=== PATIENT | female | born 1945 | race Caucasian/White ===

== ENCOUNTER → 2016-06-03 | Day surgery (SDC) | payer MEDICARE ==
[~2016-06-03] VITALS: Ht 174.6 cm; Wt 75.5 kg
[~2016-06-03] MED LIST: ACET-703 PO; APRE1TAB3 PO; ASPI1TAB69 PO; BIOT1000 PO; CHOL5000 PO; CHRO200C PO; COQ1100C PO; GABA300C5 PO; HYALURONIDASE/LIDOCAINE/EPINEPHRINE/BUPIVACAINE 4.5 ML SYR LEFT EYE ONE; HYALURONIDASE/LIDOCAINE/EPINEPHRINE/BUPIVACAINE 6 ML SYR LEFT EYE ONE; LIDOCAINE HCL 1% 30 ML VIAL ONE; MIDAZOLAM HCL 2 MG/2 ML VIAL ONE; OFLO0.3D5 EACH EYE; OMNI1SUS EACH EYE; PROPARACAINE HCL 0.5% OPHT SOLN 15 ML BTL LEFT EYE ONE; PROPOFOL 200 MG/20 ML AMP ONE; SODIUM CHLORID 0.9% 500 ML INJ 500 ML ONE; SYNT112T PO; ZYRT10CA PO
[2016-06-03] MEDS: FLURBIPROFEN 0.03% OPHT SOLN 2.5 ML BTL LEFT EYE SCH ×4 (06:45→07:00)
[2016-06-03] MEDS: PHENYLEPHRINE HCL 10% OPTH SOLN 5 ML BTL LEFT EYE SCH ×4 (06:45→07:00)
[2016-06-03] MEDS: CYCLOPENTOLATE HCL 1% OPHT SOLN 2 ML BTL LEFT EYE SCH ×4 (06:45→07:00)
[2016-06-03] MEDS: TROPICAMIDE 1% OPHT SOLN 15 ML BTL LEFT EYE SCH ×4 (06:45→07:00)
[2016-06-03 06:59] VITALS: BP 154/85; PULSE 56; RESP 16; TEMP 98; O2SAT 99
[2016-06-03 07:20] VITALS: PULSE 56
[2016-06-03] MEDS: TOBRAMYCIN/DEXAMETHASONE OPTH OINT 3.5 GM TUBE ONE ×2 (08:23→08:32)
[2016-06-03 08:40] VITALS: TEMP 98.4
[2016-06-03 09:05] VITALS: BP 159/76; PULSE 57; RESP 18; O2SAT 100
--- NOTE | 2016-06-08 18:39 | MP ---
cc: BENITEZ ORDONEZ M.D. DATE OF SURGERY: 06/03/2016 [facility] [id number] PREOPERATIVE DIAGNOSIS Visually significant cataract, left eye. POSTOPERATIVE DIAGNOSIS Visually significant cataract, left eye. OPERATION Phacoemulsification with posterior chamber lens implantation, left eye. SURGEON Benitez Ordonez MD ANESTHESIA Retrobulbar with MAC. COMPLICATIONS None. PROCEDURE After informed consent was obtained, the patient was brought into the operative suite and placed on appropriate monitors by the Anesthesia Service. The patient had received a prior retrobulbar injection of local anesthetic by the Anesthesia Service in the holding area. The patient's operative eye was then prepped and draped in the usual sterile fashion. A wire lid speculum was placed. A paracentesis incision was made in the peripheral cornea with a 1 mm betty keratome. The anterior chamber was filled with viscoelastic. The anterior chamber was then entered through a stepped, clear corneal incision using a sharp 3 mm betty keratome. A circular tear capsulorrhexis was then made with a bent needle cystitome. Following hydrodissection of the lens nucleus with balanced saline, phacoemulsification of the nucleus was performed using a modified chopping technique. The remaining cortex was removed with irrigation/aspiration. The prior two procedures were both performed using the handpieces of the [employer] phaco unit. The capsular bag was then filled with viscoelastic. The intraocular lens was then injected into the capsular bag and positioned. The type of intraocular lens and its power can be found elsewhere in this chart. The remaining viscoelastic was then removed from the anterior chamber with the IA handpiece. The anterior chamber was reformed with balanced saline. The wound was then closed securely with stromal hydration. It was found to be watertight to an intraocular pressure of at least 30 mmHg by palpation. A small amount of balanced salt solution was then removed through the paracentesis site and the intraocular pressure at the end of the case was approximately 20 by palpation. All drapes were then removed. TobraDex ointment was then placed in the eye, which was closed beneath a semi-pressure patch dressing. The patient tolerated this procedure well and left the operating room awake and alert. The patient is to follow-up in my office in the morning. MD KIAH Sun/RADHA /10:02 AM /6:38 PM
== END | disposition home or self-care (01) ==
LOC: CSDC 05:51
PROVIDERS: ATTEND Optometrist Occupational Vision
DX: H25.12 Age-related nuclear cataract, left eye (principal)
CPT/HCPCS: 00142; 66984; J2250; J7040; V2632

== ENCOUNTER → 2016-07-15 | Day surgery (SDC) | payer MEDICARE ==
[~2016-07-15] VITALS: Ht 171.4 cm; Wt 75.9 kg
[~2016-07-15] MED LIST changes: +CYCLOPENTOLATE HCL 1% OPHT SOLN 2 ML BTL ONE; +FLURBIPROFEN 0.03% OPHT SOLN 2.5 ML BTL ONE; -HYALURONIDASE/LIDOCAINE/EPINEPHRINE/BUPIVACAINE 4.5 ML SYR LEFT EYE ONE; -HYALURONIDASE/LIDOCAINE/EPINEPHRINE/BUPIVACAINE 6 ML SYR LEFT EYE ONE; +HYALURONIDASE/LIDOCAINE/EPINEPHRINE/BUPIVACAINE 6 ML SYR ONE; -MIDAZOLAM HCL 2 MG/2 ML VIAL ONE; +PHENYLEPHRINE HCL 10% OPTH SOLN 5 ML BTL ONE; -PROPARACAINE HCL 0.5% OPHT SOLN 15 ML BTL LEFT EYE ONE; +PROPARACAINE HCL 0.5% OPHT SOLN 15 ML BTL ONE; +TROPICAMIDE 1% OPHT SOLN 15 ML BTL ONE
[2016-07-15 06:40] VITALS: PULSE 57
[2016-07-15 06:41] VITALS: BP 160/78; PULSE 56; RESP 18; TEMP 98; O2SAT 96
[2016-07-15 07:05] VITALS: PULSE 58
[2016-07-15] MEDS: TOBRAMYCIN/DEXAMETHASONE OPTH OINT 3.5 GM TUBE ONE ×2 (08:20→08:30)
[2016-07-15 08:40] VITALS: BP 143/74; PULSE 54; RESP 16; TEMP 97.1; O2SAT 95
--- NOTE | 2016-07-16 09:30 | MP ---
cc: JEAN-PIERRE ORDONEZ M.D. DATE OF SURGERY: 07/15/2016 [facility] [id number] PREOPERATIVE DIAGNOSIS Visually significant cataract, right eye. POSTOPERATIVE DIAGNOSIS Visually significant cataract, right eye. OPERATION Phacoemulsification with posterior chamber lens implantation, right eye. SURGEON Benitez Ordonez MD ANESTHESIA Retrobulbar with MAC. COMPLICATIONS None. PROCEDURE After informed consent was obtained, the patient was brought into the operative suite and placed on appropriate monitors by the Anesthesia Service. The patient had received a prior retrobulbar injection of local anesthetic by the Anesthesia Service in the holding area. The patient's operative eye was then prepped and draped in the usual sterile fashion. A wire lid speculum was placed. A paracentesis incision was made in the peripheral cornea with a 1 mm betty keratome. The anterior chamber was filled with viscoelastic. The anterior chamber was then entered through a stepped, clear corneal incision using a sharp 3 mm betty keratome. A circular tear capsulorrhexis was then made with a bent needle cystitome. Following hydrodissection of the lens nucleus with balanced saline, phacoemulsification of the nucleus was performed using a modified chopping technique. The remaining cortex was removed with irrigation/aspiration. The prior two procedures were both performed using the handpieces of the [employer] phaco unit. The capsular bag was then filled with viscoelastic. The intraocular lens was then injected into the capsular bag and positioned. The type of intraocular lens and its power can be found elsewhere in this chart. The remaining viscoelastic was then removed from the anterior chamber with the IA handpiece. The anterior chamber was reformed with balanced saline. The wound was then closed securely with stromal hydration. It was found to be watertight to an intraocular pressure of at least 30 mmHg by palpation. A small amount of balanced salt solution was then removed through the paracentesis site and the intraocular pressure at the end of the case was approximately 20 by palpation. All drapes were then removed. TobraDex ointment was then placed in the eye, which was closed beneath a semi-pressure patch dressing. The patient tolerated this procedure well and left the operating room awake and alert. The patient is to follow-up in my office in the morning. MD KIAH Sun/RADHA /10:28 AM /9:29 AM
== END | disposition home or self-care (01) ==
LOC: PHSDC 05:56
PROVIDERS: ATTEND Optometrist Occupational Vision
DX: H26.9 Unspecified cataract (principal)
CPT/HCPCS: 00142; 66984; J7040; V2632

== ENCOUNTER → 2016-08-24 | Day surgery (SDC) | payer MEDICARE ==
[~2016-08-24] MED LIST changes: +ACETAMINOPHEN 1000 MG/100 ML VIAL IV ONE; +BUPIVACAINE HCL PF 0.5% 30 ML VIAL ONE; +BUPIVACAINE/EPINEPHRINE 0.25% 50 ML VIAL ONE; +BUPIVACAINE/EPINEPHRINE 0.5% PF 30 ML VIAL ONE; -CYCLOPENTOLATE HCL 1% OPHT SOLN 2 ML BTL ONE; -FLURBIPROFEN 0.03% OPHT SOLN 2.5 ML BTL ONE; -HYALURONIDASE/LIDOCAINE/EPINEPHRINE/BUPIVACAINE 6 ML SYR ONE; +KETOROLAC TROMETHAMINE 30 MG/ML (IVP) VIAL IV PUSH ONE; +LACTATED RINGER'S 1000 ML INJ 1,000 ML ONE; -LIDOCAINE HCL 1% 30 ML VIAL ONE; +MIDAZOLAM HCL 2 MG/2 ML VIAL ONE; +ONDANSETRON HCL 4 MG/2 ML VIAL IV PUSH ONE; -PHENYLEPHRINE HCL 10% OPTH SOLN 5 ML BTL ONE; +PROMETHAZINE INJ 25 MG/ML VIAL ONE; -PROPARACAINE HCL 0.5% OPHT SOLN 15 ML BTL ONE; +PROPOFOL 200 MG/20 ML AMP IV ONE; -PROPOFOL 200 MG/20 ML AMP ONE; -SODIUM CHLORID 0.9% 500 ML INJ 500 ML ONE; -TROPICAMIDE 1% OPHT SOLN 15 ML BTL ONE; +ceFAZolin 2 GM PREMIX 50 ML ONE; +metroNIDAZOLE 500 MG INJ 100 ML IV ONE
--- NOTE | 2016-08-24 11:21 | TN ---
cc: KARIN NINO MD DATE OF SURGERY 08/24/2016 PREOPERATIVE DIAGNOSIS Symptomatic cholelithiasis. POSTOPERATIVE DIAGNOSIS Symptomatic cholelithiasis. PROCEDURE Laparoscopic cholecystectomy. SURGEON Karin Nino MD HANDBAG STITCHER Jules, MS-3 ANESTHESIA General SPECIMENS Gallbladder and contents. ESTIMATED BLOOD LOSS 5 cc PROCEDURE IN DETAIL The patient was taken to the operating room, placed in a supine position. General anesthesia was induced. The abdomen was prepped and draped in the usual sterile fashion. A surgical time-out was performed to verify correct patient, procedure and site. Appropriate preoperative antibiotics were administered. Left of the umbilicus, a 5 mm incision was made after infiltration of local anesthetic. The abdomen was entered bluntly using the OptiView 5-mm trocar and laparoscopic. The abdomen was insufflated to 15 mmHg with CO2 gas which the patient tolerated well. She was placed in reverse Trendelenburg position and turned to the left. A 12 mm trocar was then placed in the epigastrium and a 5-mm trocar in the right upper quadrant of the right lateral abdomen. These were placed under direct laparoscopic visualization. Attention was turned to the gallbladder. It did not appear inflamed. The dome was grasped and retracted cephalad. The infundibulum was grasped and retracted laterally. Careful blunt dissection and judicious use of electrocautery was used to delineate the cystic duct and the cystic artery directly entering the gallbladder. Two clips were first placed on the cystic artery proximally, one distally and it was transected. There was another small branch which I placed one clip on proximally and transected. Now the only structure entering the gallbladder was the cystic duct. Two clips were placed proximally and one distally and it was transected. The gallbladder was removed from the liver bed using electrocautery. There was good hemostasis and no leakage of bile. The cystic duct and cystic artery stumps were intact with no bile leakage or bleeding. The gallbladder was removed from the abdomen using an EndoCatch bag. The abdomen was then allowed to desufflate. The fascia at the 12-mm trocar was closed with [id number] Vicryl suture. Skin closed with subcuticular 4-0 Monocryl and Dermabond. The patient tolerated procedure well, was extubated and taken to PACU in stable condition. MD MELITON Childers/DJClark /11:06 AM /11:16 AM
== END | disposition home or self-care (01) ==
LOC: ESDC 08:20
PROVIDERS: ATTEND Surgery
DX: K80.10 Calculus of gallbladder with chronic cholecystitis without obstruction (principal)
CPT/HCPCS: 00790; 47562; 88304; J0131; J0690; J1885; J2250; J2405; J2550; J3010; J7120

== ENCOUNTER 2018-01-15 23:32 | Observation (INO) ==
[2018-01-15] MEDS ORDERED: Sodium Chlor 0.9% Inj 500 ML IV.SIG ONE (23:39)
[2018-01-15 23:55] VITALS: RESP 16
--- NOTE | 2018-01-15 23:58 | XR ---
EXAM DATE: 01/15/2018 11:55 PM EDT AGE/SEX: 72 years / Female INDICATIONS: Chest pain. CLINICAL DATA: This is the patient's initial encounter. Patient reports that signs and symptoms have been present for 1 day and indicates a pain score of 6/10. MEDICAL/SURGICAL HISTORY: Carcinoma, breast. Hypertension. Hypercholesterolemia. Mastectomy, left. Cholecystectomy. Ankle, Left. COMPARISON: No prior exams available for comparison. FINDINGS: Portable AP view of the chest demonstrates a normal-sized cardiac silhouette. No effusion, consolidat ion, or pneumothorax is identified. The bones and soft tissues demonstrate no acute finding. EKG raymond es overlie the patient. CONCLUSION: No acute cardiopulmonary abnormality is identified. Electronically signed by: John Medrano MD 01/15/2018 11:57 PM EDT
[2018-01-16 00:31] LABS: Baso % (Auto) 0.5 % (0.0-2.0); Eos % (Auto) 0.6 % (0.0-4.0); Hematocrit 35.1 % (35.0-46.0); Hemoglobin 12.3 gm/dL (11.6-15.3); Lymph # (Auto) 0.5 th/mm3 (1.0-4.8); Lymph % (Auto) 8.2 % (9.0-44.0); Mean Corpuscular Hemoglobin 32.6 pg (27.0-34.0); Mean Corpuscular Volume 93.2 fL (80.0-100.0); Mean Platelet Volume 8.9 fL (7.0-11.0); Mono # (Auto) 0.5 th/mm3 (0.0-0.9); Mono % (Auto) 7.7 % (0.0-8.0); Neut # (Auto) 5.6 th/mm3 (1.8-7.7); Platelet Count 162 th/mm3 (150-450); Red Blood Count 3.77 mil/mm3 (4.00-5.30); White Blood Count 6.7 th/mm3 (4.0-11.0)
[2018-01-16 00:44] LABS: Alanine Aminotransferase 43 U/L (10-53); Albumin 3.6 g/dL (3.4-5.0); Anion Gap 10 meq/L (5-15); Aspartate Aminotransferase 43 U/L (15-37); Blood Urea Nitrogen 12 mg/dL (7-18); Calcium 8.8 mg/dL (8.5-10.1); Carbon Dioxide 29.3 meq/L (21.0-32.0); Chloride 102 meq/L (98-107); Glomerular Filtration Rate 82 mL/min (>89); Glucose,Random 127 mg/dL (74-106); Lipase 78 U/L (73-393); Magnesium 1.8 mg/dL (1.5-2.5); Potassium 3.5 meq/L (3.5-5.1); Sodium 141 meq/L (136-145)
[2018-01-16 00:48] LABS: Activated Partial Thrombo Time 25.3 sec (24.3-30.1); INR 1.1 Ratio; Prothrombin Time 11.2 sec (9.8-11.6)
[2018-01-16 00:49] LABS: Alkaline Phosphatase 65 U/L (45-117); Creatine Kinase 78 U/L (26-192); Total Protein 7.4 g/dL (6.4-8.2)
[2018-01-16 00:52] LABS: D-Dimer 0.39 mg/L FEU (0.00-0.50)
[2018-01-16] MEDS ORDERED: Acetaminophen 500 MG Tablet PO PRN (01:44)
--- NOTE | 2018-01-16 01:44 | ED ---
HPI General Chief complaint: Chest Pain Stated complaint: cardiac Time Seen by Provider: 01/15/18 23:39 Source: patient Limitations: no limitations History of Present Illness HPI narrative: The patient is a 72 year old female who presents to the [facility] emergency department with a history of chest pain that she reports has been coming and going for the last 2 months. She reports that tonight the chest pain was worse than it is ever been in the past. She reports that it is on the left side of her chest and radiates into her jaw and back. The patient reports having associated shortness of breath, nausea, vomiting 2, diarrhea 1. She reports that she last had a stress test over 5 years ago. She reports that she has been experiencing this chest pain and shortness of breath with dyspnea on exertion and inability to exercise in her usual fashion for the last 2 months. She recently saw Dr. Ruff, a local market research interviewer regarding this. She reports that she is scheduled for a cardiac catheterization this next week. She reports that she tried taking a sublingual nitroglycerin without any improvement. She reports that the pain is a 6 out of 10 in severity. She reports that the pain is a crushing/pressure sensation. Review of systems otherwise, the patient denies having any known recent fevers, diaphoresis, cough , congestion,abdominal pain, urinary symptoms, or neurologic symptoms. Related Data Home Medications Medication Instructions Recorded Confirmed apremilast [Otezla] 30 mg PO BID 01/15/18 01/15/18 aspirin 81 mg PO DAILY 01/15/18 01/15/18 atorvastatin 40 mg PO DAILY 01/15/18 01/15/18 cholecalciferol (vitamin D3) 5,000 unit PO DAILY 01/15/18 01/15/18 [Vitamin D3] isosorbide mononitrate 30 mg PO QAM 01/15/18 01/15/18 levothyroxine [Synthroid] 112 mcg PO DAILY 01/15/18 01/15/18 losartan 50 mg PO DAILY 01/15/18 01/15/18 nitroglycerin 0.4 mg SUBLINGUAL Q5-15M PRN 01/15/18 01/15/18 pantoprazole 40 mg PO DAILY 01/15/18 01/15/18 Allergies Allergy/AdvReac Type Severity Reaction Status Date / Time azithromycin Allergy Severe THROAT Unverified 12/28/16 14:57 SWELLING morphine Allergy Severe Hallucinati Unverified 12/28/16 14:57 ons hydrochlorothiazide Allergy Intermediate NAUSEA Unverified 12/28/16 14:57 LEVATHYROXINE GENERIC Allergy Severe Chest Pain Uncoded 06/03/16 06:47 Review of Systems ROS: all other systems reviewed are negative (Except for that which was mentioned in the HPI.) [facility] Medical History Medical History High cholesterol (Acute) Menieres disease (Acute) Skin cancer (Acute) Surgical History Surgical History H/O left mastectomy (Acute) Social History Social History Second Hand Smoke Exposure: No Smoking Status: Former smoker How Often Do You Have a Drink Containing Alcohol: Never Recent Travel in [facility] within the Last 8 Weeks: No Recent Out of Country Travel within the Last 8 Weeks: No Immunization History Tetanus Immunization: Unsure Exam Const General: cooperative, no acute distress and well developed Nutritional Appearance: well nourished Orientation: alert, awake and oriented x3 HENMT Head: normocephalic and atraumatic Nose: no nasal discharge and no epistaxis Mouth: moist mucous membranes Throat: posterior oropharynx normal and uvula midline Eyes Sclera: normal sclerae Pupils: PERRL Neck Neck: no meningeal signs, trachea midline and no JVD Resp Effort & Inspection: no use of accessory muscles Auscultation: clear to auscultation bilaterally Cardio Rate: regular rate Rhythm: regular rhythm Heart Sounds: no gallops, no murmurs and no rubs GI Inspection: non-distended Palpation: soft, no hepatosplenomegaly and nontender Auscultation: normal bowel sounds Back/Spine/Pelvis Back: no CVA tenderness Skin General: dry skin (warm) Neuro General: alert, awake and oriented x3 Cranial Nerves: other (Grossly nonfocal.) Speech: speech normal Motor: no movement abnormalities noted Extrem General: normal to inspection (No calf tenderness on palpation. 2+ pulses all 4 extremities.), no clubbing, no cyanosis and edema (Trace pedal edema.) Laterality: bilaterally Psych Mood: congruent mood Affect: normal affect Judgment: judgment good Course Reevaluation(s) Reevaluation #1: On reevaluation, the patient's chest pain reportedly resolved. Nausea resolved after the administration of Zofran. Initial Documented Vital Signs Pulse Rate 65 01/15/18 23:34 Respiratory Rate 18 01/15/18 23:34 Blood Pressure 169/80 H 01/15/18 23:34 Pulse Oximetry 99 01/15/18 23:34 Last Documented Vital Signs Pulse Rate 70 01/16/18 04:00 Respiratory Rate 16 01/16/18 04:00 Blood Pressure 118/59 L 01/16/18 04:00 Pulse Oximetry 97 01/16/18 04:00 Medical Decision Making MDM Narrative Medical decision making narrative: During the course of the patient's emergency department visit, the patient's history, examination, and differential diagnosis were reviewed with the patient. The patient was placed on a cardiac tech with oximetry and frequent blood pressure monitoring. The patient had IV access obtained and blood work sent for analysis. Diagnostic evaluation was started regarding the patient's chest pain. The patient was initially provided aspirin 243 mg po x1, nitroglycerin sublingual every 5 minutes 2, nitroglycerin 1 inch the chest wall, Zofran 4 mg IV, normal saline 500 mL bolus The patient's diagnostic evaluation reveals a CBC that is within normal limits. Chemistry is unremarkable, initial troponin I is negative. The patient will be admitted for serial cardiac enzymes and consideration of stress testing versus cardiac catheterization given her recent symptoms of chest pain and shortness of breath over the last couple of months. Unfortunately, after the patient was admitted, the patient reported that she has an appointment with her skin cancer doctor for lesion removal on the left leg later today. She reports that all of her symptoms have resolved and she would like to be discharged to complete the appointment. I explained that her symptoms were of such a severity when she came in and relieved only with the medications provided in the emergency department, therefore it would not be considered safe for her to be discharged home without completion of her cardiac workup. In spite of being aware of the risk factors including possible if she develops a fatal cardiac arrhythmia from ischemia, she continues to insist on being discharged. The patient signed out AMA. AMA: The risks of leaving against medical advice without further evaluation treatment were discussed with the patient. These risks include cardiac dysfunction, cardiac dysrhythmia, possible heart attack, possible stroke or . The patient indicated understanding of these risks and appeared to have the capacity to make this decision. Medical Screen Exam Complete: Yes Emergency Medical Condition: Yes Differential Diagnosis Differential Diagnosis: Acute coronary syndrome, versus acid reflux, versus aortic dissection, versus pulmonary embolism, versus anxiety disorder, versus pancreatitis Medical Records Medical records reviewed: Yes I reviewed the patient's medical records. Lab Data Lab results reviewed: Yes I reviewed the patient's lab results. Result diagrams: 01/15/18 23:45 01/15/18 23:45 Lab Results 01/15/18 01/15/18 01/15/18 Range/Units 23:45 23:45 23:45 WBC 6.7 (4.0-11.0) th/mm3 RBC 3.77 L (4.00-5.30) mil/mm3 Hgb 12.3 (11.6-15.3) gm/dL Hct 35.1 (35.0-46.0) % MCV 93.2 (80.0-100.0) fL MCH 32.6 (27.0-34.0) pg MCHC 35.0 (32.0-36.0) % RDW 13.0 (11.6-17.2) % Plt Count 162 (150-450) th/mm3 MPV 8.9 (7.0-11.0) fL Neut % (Auto) 83.0 H (16.0-70.0) % Lymph % (Auto) 8.2 L (9.0-44.0) % Ashley % (Auto) 7.7 (0.0-8.0) % Eos % (Auto) 0.6 (0.0-4.0) % Baso % (Auto) 0.5 (0.0-2.0) % Neut # (Auto) 5.6 (1.8-7.7) th/mm3 Lymph # (Auto) 0.5 L (1.0-4.8) th/mm3 Ashley # (Auto) 0.5 (0.0-0.9) th/mm3 Eos # (Auto) 0.0 (0.0-0.4) th/mm3 Baso # (Auto) 0.0 (0.0-0.2) th/mm3 WBC Differential . Differential Comment Auto diff final PT 11.2 (9.8-11.6) sec INR 1.1 Ratio APTT 25.3 (24.3-30.1) sec D-Dimer Quant (PE/DVT) 0.39 (0.00-0.50) mg/L FEU Sodium (136-145) meq/L Potassium (3.5-5.1) meq/L Chloride (98-107) meq/L Carbon Dioxide (21.0-32.0) meq/L Anion Gap (5-15) meq/L BUN (7-18) mg/dL Creatinine (0.50-1.00) mg/dL Estimated GFR (>89) mL/min Random Glucose (74-106) mg/dL Calcium (8.5-10.1) mg/dL Magnesium (1.5-2.5) mg/dL Total Bilirubin (0.2-1.0) mg/dL AST (15-37) U/L ALT (10-53) U/L Alkaline Phosphatase (45-117) U/L Total Creatine Kinase (26-192) U/L Troponin I (0.02-0.05) ng/mL B-Natriuretic Peptide 44 (0-100) pg/mL Total Protein (6.4-8.2) g/dL Albumin (3.4-5.0) g/dL Lipase (73-393) U/L 01/15/18 01/16/18 Range/Units 23:45 02:45 WBC (4.0-11.0) th/mm3 RBC (4.00-5.30) mil/mm3 Hgb (11.6-15.3) gm/dL Hct (35.0-46.0) % MCV (80.0-100.0) fL MCH (27.0-34.0) pg MCHC (32.0-36.0) % RDW (11.6-17.2) % Plt Count (150-450) th/mm3 MPV (7.0-11.0) fL Neut % (Auto) (16.0-70.0) % Lymph % (Auto) (9.0-44.0) % Ashley % (Auto) (0.0-8.0) % Eos % (Auto) (0.0-4.0) % Baso % (Auto) (0.0-2.0) % Neut # (Auto) (1.8-7.7) th/mm3 Lymph # (Auto) (1.0-4.8) th/mm3 Ashley # (Auto) (0.0-0.9) th/mm3 Eos # (Auto) (0.0-0.4) th/mm3 Baso # (Auto) (0.0-0.2) th/mm3 WBC Differential Differential Comment PT (9.8-11.6) sec INR Ratio APTT (24.3-30.1) sec D-Dimer Quant (PE/DVT) (0.00-0.50) mg/L FEU Sodium 141 (136-145) meq/L Potassium 3.5 (3.5-5.1) meq/L Chloride 102 (98-107) meq/L Carbon Dioxide 29.3 (21.0-32.0) meq/L Anion Gap 10 (5-15) meq/L BUN 12 (7-18) mg/dL Creatinine 0.70 (0.50-1.00) mg/dL Estimated GFR 82 L (>89) mL/min Random Glucose 127 H (74-106) mg/dL Calcium 8.8 (8.5-10.1) mg/dL Magnesium 1.8 (1.5-2.5) mg/dL Total Bilirubin 1.6 H (0.2-1.0) mg/dL AST 43 H (15-37) U/L ALT 43 (10-53) U/L Alkaline Phosphatase 65 (45-117) U/L Total Creatine Kinase 78 66 (26-192) U/L Troponin I Less than 0.02 L Less than 0.02 L (0.02-0.05) ng/mL B-Natriuretic Peptide (0-100) pg/mL Total Protein 7.4 (6.4-8.2) g/dL Albumin 3.6 (3.4-5.0) g/dL Lipase 78 (73-393) U/L Imaging Data Attestation: I personally reviewed and interpreted this imaging study as follows : Radiologist's impression: Chest X-Ray 01/15/18 23:40 CONCLUSION: No acute cardiopulmonary abnormality is identified. ECG Data Attestation: I personally reviewed and interpreted this ECG as follows: Interpretation: The patient had an EKG done on arrival that shows a sinus rhythm heart rate of 87, QRS duration is 97 ms, QTC [address] segment elevation. T waves are inverted in V1, aVL. Discharge Plan Discharge Disposition Patient Disposition: Left Against Medical Advice Discharge Order Discharge Orders: AMA Discharge (Routine); Ordered 01/16/18 Ordered By: Alisha Arreguin Discharge Details Diagnosis: Chest pain, rule out acute myocardial infarction, Left against medical advice Physicians Team ED Provider: Alisha Arreguin Primary Care Provider: Steffen Sal Attending Provider: Gus Champagne Discharge Interventions Interventions: ED Discharge Assessment Last Done: 01/16/18 14:40 Status ED Status: Left Department Discharge Information Discharge Date/Time: 01/16/18 14:41
[2018-01-16] MEDS ORDERED: Sod Chloride 0.9% Inj 1,000 ML IV.CONT SCH (01:45)
[2018-01-16 03:30] LABS: Creatine Kinase 66 U/L (26-192)
[2018-01-16 04:46] VITALS: BP 118/59; PULSE 70; O2SAT 97
--- NOTE | 2018-01-17 08:39 | ECG ---
Date Performed: 01/15/2018 Time Performed: 23:35:08 PTAGE: 72 years EKG: ECTOPIC ATRIAL RHYTHM ABNORMAL RHYTHM ECG NO PREVIOUS TRACING DOCTOR: Tila Godinez Interpretating Date/Time 01/17/2018 08:38:44
--- NOTE | 2018-01-17 08:39 | ECG ---
Date Performed: 01/16/2018 Time Performed: 02:44:08 PTAGE: 72 years EKG: Sinus rhythm WITH FIRST DEGREE AV BLOCK ABNORMAL ECG Since PREVIOUS TRACING , no significant change noted DOCTOR: Tila Godinez Interpretating Date/Time 01/17/2018 08:37:53
== END 2018-01-16 05:45 | disposition left against medical advice (07) ==
LOC: NEPE 23:32 → NEDA 23:32 → NEDH 01-16 14:16
DX: C44.701 Unspecified malignant neoplasm of skin of unspecified lower limb, including hip; Z85.3 Personal history of malignant neoplasm of breast; I10 Essential (primary) hypertension; Z90.49 Acquired absence of other specified parts of digestive tract; Z90.12 Acquired absence of left breast and nipple; R94.31 Abnormal electrocardiogram [ECG] [EKG]; E78.00 Pure hypercholesterolemia, unspecified; R07.9 Chest pain, unspecified